=== PATIENT | female | born 2000 | race Two or more races ===

== ENCOUNTER 2022-06-20 17:50 | Emergency (ER) | payer MEDICAID ==
[~2022-06-20] VITALS: Ht 157.5 cm; Wt 50.0 kg
[2022-06-20 18:34] VITALS: BP 94/73
[2022-06-20] MEDS ORDERED: HYDR-4924 PO (18:41)
== END 2022-06-20 19:10 | disposition home or self-care (01) ==
LOC: ER 17:50
DX: F41.9 Anxiety disorder, unspecified (principal)
CPT/HCPCS: 93005

== ENCOUNTER 2025-02-22 06:34 | Emergency (ER) | payer MEDICAID ==
[~2025-02-22] VITALS: Ht 152.4 cm; Wt 52.2 kg
[~2025-02-22 06:34] MED LIST: HYDR-4924 PO
--- NOTE | 2025-02-22 06:47 | ECG ---
[facility] Test Date: 2025-02-22 Test Time: 06:37:27 Pat Name: RAOUL CAMARILLO Department: ED Room: Gender: F Credit Reference Clerk: CARLA : 2000 Requested By: OZZY LABOY Order Number: [id number] Reading MD: Jamaal Mccall Measurements Intervals [place] Rate: 72 P: 47 FL: 153 QRS: 102 QRSD: 90 T: 9 QT: 379 QTc: 415 Interpretive Statements Sinus rhythm Borderline right axis deviation Low voltage, precordial leads ST elevation, consider lateral injury Baseline wander in lead(s) I,III,aVR,aVL,aVF Electronically Signed On 02-24-2025 14:01:40 PDT by Jamaal Mccall Please click the below link to view image of tracing.
--- NOTE | 2025-02-22 07:18 | ED.PDOC ---
HPI Comments 24 y/o F, ANÍBAL presents to the ED for CC of chest pain. Patient states, that she has been experiencing right sided chest pain that radiates down her right arm x1day. Patient relays, that symptoms worsened this morning with bilateral arm weakness causing her to be unable to extend her arms. Patient comments on, symptoms of burning sensation on the apex of her head when standing up. Patient was hypotensive in route to ED; BP read at 86/52. Patient denies social history. Patient denies fever, shortness of breath, chills, leg swelling, or N/V/D. No other associated symptoms, modifiers, recent injuries or sick contacts at this time. Chief Complaint: Chest Pain Time Seen by MD: 06:50 Primary Care Provider: UNKNOWN Reviewed Notes: Nurses Notes, Typewriter Tester Notes, Medications, Allergies Allergies: Coded Allergies: NO KNOWN ALLERGIES (Unverified , 06/20/22) Home Meds Active Scripts Hydroxyzine HCl (Hydroxyzine Hydrochloride) 25 Mg Tab, 25 MG PO QID PRN, #30 TAB Prov:ALEXI BAIN 06/20/22 Information Source: Patient, Emergency Med Personnel Mode of Arrival: EMS Severity: Moderate Timing: Hours Duration: Since onset Prehospital treatment: None Location: Chest (R) Radiation: No Radiation Onset: At Rest Cardiac Risk Factors: None PE Risk Factors: None History of: None Modifying Factors: Nothing Associated Signs and Symptoms: None Past Medical History PAST MEDICAL HISTORY: Anxiety Surgical History: Denies all surgeries SPORTS TRAINER History: No Pertinent SPORTS TRAINER History Family History Family History: Reviewed,noncontributory to illness, No family hx of Cancer, No family hx of DM, No family hx of Heart david, No family hx of HTN, No family hx ofKidney david, No family hx of Liver david, No family hx of Lung david, No family hx of Stroke Social History Smoker: Non-Smoker Alcohol: Denies ETOH Use Drugs: Denies Drug Use Constitutional: reports: weakness; denies: chills, diaphoresis, fatigue, fever, malaise, sweats, others EENTM: denies: blurred vision, double vision, ear bleeding, ear discharge, ear drainage, ear pain, ear ringing, eye pain, eye redness, hearing loss, mouth pain, mouth swelling, nasal discharge, nose bleeding, nose congestion, nose pain, photophobia, tearing, throat pain, throat swelling, voice changes, others Respiratory: denies: cough, hemoptysis, orthopnea, SOB at rest, shortness of breath, SOB with excertion, stridor, wheezing, others Cardiovascular: reports: chest pain; denies: dizzy spells, diaphoresis, Dyspnea on exertion, edema, irregular heart beat, left arm pain, lightheadedness, palpitations, PND, syncope, others Gastrointestinal: denies: abdomen distended, abdominal pain, blood streaked bowels, constipated, diarrhea, dysphagia, difficulty swallowing, hematemesis, melena, nausea, poor appetite, poor fluid intake, rectal bleeding, rectal pain, vomiting, others Genitourinary: denies: abnormal vagina bleeding, burning, dyspareunia, dysuria, flank pain, frequency, hematuria, incontinence, pain, , vagina discharge, urgency, others Neurological: denies: dizziness, fainting, headache, left sided numbness, left sided weakness, numbness, paresthesia, pre-existing deficit, right sided numbness, right sided weakness, seizure, speech problems, tingling, tremors, weakness, others Musculoskeletal: denies: back pain, gout, joint pain, joint swelling, muscle pain, muscle stiffness, neck pain, others Allergic/Immunocompromised: denies: Difficulty Healing, Frequent Infections, Hives, Itching, others Hematologic/Lymphatic: denies: anemia, blood clots, easy bleeding, easy bruising, swollen glands, others Endocrine: denies: excessive hunger, excessive sweating, excessive thirst, excessive urination, flushing, intolerance to cold, intolerance to heat, unexplained weight gain, unexplained weight loss, others All Other Systems: Reviewed and Negative Physical Exam General Appearance: Moderate Distress HEENT: Normal ENT Inspection, Pharynx Normal, TMs Normal Neck: Full Range of Motion, Non-Tender, Normal, Normal Inspection Respiratory: Chest Non-Tender, Lungs Clear, No Accessory Muscle Use, No Respiratory Distress, Normal Breath Sounds Cardiovascular: No Edema, No JVD, No Murmur, No Gallop, Normal Peripheral Pu lses, Regular Rate/Rhythm Breast Exam: Deferred Gastrointestinal: No Organomegaly, Non Tender, No Pulsatile Mass, Normal Bowel Sounds, Soft Genitalia: Deferred Pelvic: Deferred Rectal: Deferred Extremities: No calf tenderness, Normal capillary refill, Normal inspection, Normal range of motion, Non-tender, No pedal edema Musculoskeletal : Apperance: Normal Neurologic: Alert, vacuum evaporation operator II-XII nml as Tested, No Motor Deficits, Normal Affect, Normal Mood, No Sensory Deficits Cerebellar Function: Normal Reflexes: Normal Skin: Dry, Normal Color, Warm Peripheral Pulses: 3+ Radial (R), 3+ Radial (L) Lymphatic: No Adenopathy Was a procedure done? Was a procedure done?: No CP Differential Dx Differential Diagnosis: A-fib, A-Flutter, Angina, Anxiety / Panic Attack, Atrial Dysrhythmia, Electrolyte Disorder Differential Diagnosis: Chest Wall Pain, Costochondritis X-Ray, Labs, Meds, VS Vital Signs Date Time Temp Pulse Resp B/P (MAP) Pulse Ox O2 Delivery O2 Flow Rate FiO2 02/22/25 07:38 75 16 99 Room Air* 0 21 02/22/25 07:38 98.3 75 16 93/54 (67) 99 98.3 02/22/25 06:37 72 02/22/25 06:37 98.7 74 18 96/69 (78) 100 98.7 Lab Test 02/22/25 07:49 02/22/25 07:42 02/22/25 06:45 Range/Units Urine Color Colorless Yellow Urine Clarity Clear Clear Urine pH 6.5 5.0-9.0 Urine Specific [place] 1.002 1.001-1.035 Urine Protein Negative Negative Urine Ketones Negative Negative Urine Blood Negative Negative /uL Urine Nitrite Negative Negative Urine Bilirubin Negative Negative Urine Urobilinogen Normal Negative mg/dL Urine Leukocyte Esterase 3+ Negative /uL Urine RBC 2 0 - 4 /hpf Urine Microscopic WBC 5 0-5 /HPF Urine Squamous Epithelial Cells Few <5 /hpf Urine Bacteria Mod H None Seen /hpf Urine Glucose Normal Normal mg/dL Troponin I High Sensitivity < 3 L < 3 L </=34 ng/L Current Medications Medications (Trade) Dose Ordered Sig/Saima Route Start Time Stop Time Status Last Admin Sodium Chloride 1,000 ml @ 1,000 mls/hr Q1H ONCE IVB 02/22/25 07:00 02/22/25 07:59 DC 02/22/25 07:44 Patient alert. Complaining of right-sided musculoskeletal upper chest pain. Vitals stable. Answering questions. No sign of distress. Cardiac marker within normal limits. EKG reviewed does not show any acute changes. Blood pressure on the low side. Establish intravenous access. Was given fluids. Reviewed her history. Urinalysis shows UTI. Was given prescription of Motrin Macrobid antibiotic. Explained to the patient. Was told to follow up with her primary care physician. Was told to come back is any problem. Time of 1ST Reevaluation: 07:20 Reevaluation 1ST: Improved Patient Education/Counseling: Diagnosis, Treatment Family Education/Counseling: No Family Present Departure 1 Departure Time of Disposition: 07:24 Impression: Primary Impression: Hypotension Qualified Codes: I95.9 - Hypotension, unspecified Additional Impressions: Musculoskeletal chest pain Anxiety UTI (urinary tract infection) Qualified Codes: N30.00 - Acute cystitis without hematuria Disposition: HOME / SELF CARE / HOMELESS Condition: Good e-Prescriptions Nitrofurantoin Monohydrate Mac (Macrobid) 100 Mg Cap 100 MG PO BID for 7 Days, #14 CAP Prov: OZZY LABOY MD 02/22/25 Discharged With: Self Critical Care Note Critical Care Time?: No Stability Stability form required: No Heart Score Heart Score: Heart Score Response (Comments) Value History Slightly Suspicious 0 EKG Normal 0 Age <45 0 Risk Factors No known risk factors 0 Troponin Normal limit 0 Total 0 I personally scribed for OZZY LABOY MD ([email or web address]) on 02/22/25 at 07:18. Electronically submitted by Emerald Duke ([email or web address]). OZZY LABOY MD Feb 22, 2025 07:18
[2025-02-22 07:38] VITALS: PULSE 75; RESP 16; O2SAT 99
[2025-02-22] MEDS: SODIUM CHLORIDE 0.9% 1,000 ML IVB ONE (07:44)
[2025-02-22 08:37] LABS: Urine Bacteria MOD /hpf (None Seen); Urine Blood Negative /uL (Negative); Urine Clarity Clear (Clear); Urine Color Colorless (Yellow); Urine Protein, UAD Negative (Negative); Urine Specific Gravity 1.002 (1.001-1.035); Urine Squamous Epithelial Cell FEW /hpf (<5); Urine Urobilinogen Normal (Negative); Urine WBC 5 /HPF (0-5); Urine pH 6.5 (5.0-9.0)
[2025-02-22] MEDS ORDERED: NITR-87 PO (09:00)
[2025-02-22 09:05] VITALS: BP 101/35; PULSE 78; RESP 17; TEMP 98.3; O2SAT 100
== END 2025-02-22 09:09 | disposition home or self-care (01) ==
LOC: ER 06:34 → EDBD 06:34 → ER 09:09
DX: I95.9 Hypotension, unspecified (principal); M79.18 Myalgia, other site; F41.9 Anxiety disorder, unspecified; N39.0 Urinary tract infection, site not specified
CPT/HCPCS: 36415; 81001; 84484; 93005; 96360; 99284; J7030